=== PATIENT | male | born 1960 | race Caucasian/White ===

== ENCOUNTER 2020-11-27 14:12 | Emergency (ER) | payer OTHER ==
[~2020-11-27] VITALS: Ht 180.3 cm; Wt 96.7 kg
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
[2020-11-27] MEDS ORDERED: BUDE90AE INH (14:55)
[2020-11-27] MEDS ORDERED: LIDOCAINE 1%, 10ML INFIL ONE (15:30)
[2020-11-27] MEDS ORDERED: LIDOCAINE-MPF 1%, 5ML ONE (15:32)
[2020-11-27] MEDS ORDERED: BUPIVACAINE 0.25% ONE (15:46)
[2020-11-27] MEDS ORDERED: BUPIVACAINE/PF-EPI 0.25% 1:200K SQ ONE (16:00)
--- NOTE | 2020-11-27 16:06 | NUR ---
ERPA AT BEDSIDE FOR ORTHO CARE.
[2020-11-27] MEDS ORDERED: BACITRACIN ZINC OINT 500U/GM, 0.9 GM ONE (16:11)
[2020-11-27 16:30] VITALS: BP 144/93
--- NOTE | 2020-11-27 16:54 | NUR ---
Patient given discharge instructions and prescription and they have confirmed that they understand the instructions. Patient ambulatory with steady gait. NAD, all questions answered appropriately, denies additional needs at this time. No personal belongings left in room after discharge.
== END 2020-11-27 16:55 | disposition home or self-care (01) ==
LOC: ED 15:30
DX: S62.661B Nondisplaced fracture of distal phalanx of left index finger, initial encounter for open fracture (principal); W22.8XXA Striking against or struck by other objects, initial encounter; Y93.89 Activity, other specified; Y92.009 Unspecified place in unspecified non-institutional (private) residence as the place of occurrence of the external cause; Y99.8 Other external cause status
CPT/HCPCS: 12041; 99284